=== PATIENT | male | born 1990 | race Hispanic/Latino ===

== ENCOUNTER → 2024-07-03 12:51 | Outpatient (REF) | payer OTHER, SELFPAY ==
[2024-07-06 09:01] LABS: H. pylori Breath Test Negative (Negative)
== END ==
LOC: REG 12:51
PROVIDERS: ATTENDING PHYSICIAN Nurse Practitioner Adult Health
DX: R10.13 Epigastric pain (principal)
CPT/HCPCS: 36415; 83013

== ENCOUNTER 2025-03-29 16:34 | Emergency (ER) | payer SELFPAY ==
[2025-03-29 16:39] VITALS: BP 145/71
--- NOTE | 2025-03-29 18:35 | EDRN ---
Gosia Ceballos PA in to see pt.
--- NOTE | 2025-03-29 18:38 | ED.GENMED ---
History of Present Illness
General
Chief Complaint: Skin Surface Trauma
Source: patient
Time Seen by Provider: 03/29/25 18:06
History of Present Illness
History of Present Illness:
Note:
CHIEF COMPLAINT(S)
Hand laceration
HISTORY OF PRESENT ILLNESS
The patient is a 34-year-old male presenting with a laceration to the left hand. The injury occurred during work, where a screw penetrated the hand in the interdigital webbing space. The patient expressed uncertainty about the date of the last
tetanus vaccination. Patient is right-hand dominant. No other injuries were sustained. Patient does note pain mainly to the area where the screw penetrated the webbing space but also around the thenar eminence of the left hand
Past History
Past History
ED Past Medical History: None
ED Past Surgical History: None
Social History
Tobacco: Non-smoker
Alcohol: None
Drug: None
Personal: Single
Living: with family
Employment: Employed
Review of Systems
Review of Systems
All Other Systems: ROS reviewed and negative except as documented in HPI and ROS
Phy Exam
Physical Exam
Physical Exam:
GENERAL: Alert , in no apparent distress
EYE: conjunctiva clear
Head: Normocephalic atraumatic
NECK: Supple,
ENT: mmm.
LUNGS: no acute respiratory distress
NEUROLOGICAL: Alert and oriented
SKIN: Warm and dry, 7 mm puncture wound to the dorsal surface of the interdigital webbing space. The palmar surface does have a small bruise of the thenar eminence with tenderness and mild soft tissue swelling but no breaks in the skin along this
portion of the hand
MUSCULOSKELETAL: well perfused. Patient is able to oppose his thumb although this does cause increased discomfort. Sensation is grossly intact and equal to light touch throughout all digits
PSYCH: Normal and appropriate interaction.
Scores
Heart Failure Risk
Heart Failure Risk Score: Not Applicable
Heart Score for Chest Pain Patients
STEMI patient?: Not applicable
Withdrawal Assessment of Alcohol
Withdrawal Assessment Completed?: Not applicable
Course
Orders/Labs/Results
Orders:
Orders
03/29/25 16:37
Hand, Left 3 View [CR Hand - Left Min 3 Views] Urgent
Comment:
Reason For Exam: puncture wound with a piece from a ladder.
03/29/25 18:37
Cephalexin Monohydrate [Keflex] 500 mg PO NOW STA
Ibuprofen [Motrin] 800 mg PO NOW STA
Tetanus/Diphth/Acelpertussis [Adacel] 0.5 ml IM .ONCE ONE
Vital Signs
Initial and Last Documented VS:
Initial Vital Signs
Temp Pulse Resp BP Pulse Ox
98.6 F 75 16 145/71 98
03/29/25 16:39 03/29/25 16:39 03/29/25 16:39 03/29/25 16:39 03/29/25 16:39
Last Documented Vital Signs
Temp Pulse Resp BP Pulse Ox
98.6 F 75 16 145/71 98
03/29/25 16:39 03/29/25 16:39 03/29/25 16:39 03/29/25 16:39 03/29/25 18:38
Procedures
Laceration Closure
Left Hand:
Status of Wound: clean
Size of Wound in cm: 0.7
Description of Wound Edges: sharp
Preparation: cleaned with saline
Skin Closure Material: 5-0 nylon
Number of sutures: 1
MDM/Problems Addressed
Differential Diagnosis Includes:
The Differential Diagnosis includes, in no particular order and is not limited to:
- Laceration with potential foreign body
- Soft tissue infection
- Neurovascular injury
- Tendon injury
- Fracture (ruled out)
- Contusion
MDM/Problems Addressed:
Laceration repaired as above without difficulty with good hemostasis. Will administer a tetanus vaccine booster. Will treat here with anti-inflammatories as well as a dose of Keflex and prescribe this to be discharged home with over the next 5
days. Apply a large dressing to the wound. Suture removal in 10 to 12 days. Patient advised on wound care
*Radiology
Radiology exam reviewed: preliminary read by ED provider (No fracture, no foreign body)
*Pulse Oximetry
SaO2: 98
Oxygen Mode of Delivery: Room air
*Critical Care Note
Total Time (30-74mins, 75-104mins- exclusive of procedures): Not Applicable
ED Attending Note
-
Portions of this chart may have been created with voice recognition software.� Occasional wrong word or��sound alike� substitutions may have occurred due to the inherent limitations of voice recognition software.
Discharge Plan
Departure
Patient Disposition: Home (Routine Discharge)
Date of Disposition: 03/29/25
Time of Disposition: 18:38
Patient with high blood pressure during this ER visit?: Yes
Discharge Problem:
Laceration of hand, left
Instructions: Laceration Repair With Stitches (DC)
Prescriptions:
New
cephalexin 500 mg tablet
500 mg PO BID 5 Days Qty: 10 0RF
No Action
Amoxicillin
500 mg PO TID
psyllium husk [Metamucil Fiber (aspartame)] 1 PACKET powder in packet
1 packet PO DAILY Qty: 14 0RF
Referrals:
[facility] [Outside]
UNKNOWN - PT DOES,NOT KNOW [Family Provider]
Activity Restrictions/Additional Instructions:
Suture removal in 10-12 days
Interventions
Interventions:
*Risk Screen - Suicide Last Done: 03/29/25 18:49
*General Assessment Last Done: 03/29/25 16:39
*Neglect/Abuse Screening Last Done: 03/29/25 18:49
*ED- Fall Risk Assessment Last Done: 03/29/25 18:48
*ED COVID-19 Vaccine History Last Done: 03/29/25 16:39
*Nursing Disposition Last Done: 03/29/25 19:01
ED-Skin Assessment Last Done: 03/29/25 18:47
Discharge Date and Time
Print Language: AMHARIC
[2025-03-29] MEDS: ADACEL 0.5 ML IM (18:49)
[2025-03-29] MEDS: MOTRIN 800 MG PO (18:50)
[2025-03-29] MEDS: KEFLEX 500 MG PO (18:50)
--- NOTE | 2025-03-29 18:59 | EDRN ---
Wound dressed w/ double antibiotic ointment, telfa and gloria.
== END 2025-03-29 19:02 | disposition home or self-care (01) ==
LOC: EMR 16:34
PROVIDERS: EMERGENCY PHYSICIAN Student in an Organized Health Care Education/Training Program
DX: S61.412A Laceration without foreign body of left hand, initial encounter (principal); W45.8XXA Other foreign body or object entering through skin, initial encounter; R03.0 Elevated blood-pressure reading, without diagnosis of hypertension; Z23 Encounter for immunization
CPT/HCPCS: 99283; 90471; 12001; 73130; 90715